=== PATIENT | female | born 1985 | race Caucasian/White ===

== ENCOUNTER 2022-01-23 12:25 | Observation (INO) ==
[2022-01-23] MEDS ORDERED: SODIUM CHLORIDE 0.9% 1000ML 1,000 ML IV ONE (13:32)
[2022-01-23] MEDS ORDERED: ONDANSETRON INJ 2 MG/ML 2 ML VIAL IV STA (13:32)
[2022-01-23] MEDS ORDERED: HYDROmorphone INJ 0.5 MG/0.5 ML SYR IV STA ×2 (13:32→16:51)
[2022-01-23 13:51] LABS: Alanine Aminotransferase 165 U/L (7-52); Albumin Globulin Ratio 1.5 (0.9-2); Albumin Level 4.4 gm/dl (3.4-5.0); Alkaline Phosphatase 84 U/L (34-104); Anion Gap 7 (3-11); Aspartate Aminotransferase 307 U/L (13-39); BUN Creatinine Ratio 14.3 (10-20); Bilirubin,Total 0.9 mg/dl (0.2-1.0); Blood Urea Nitrogen 13 mg/dl (6-23); Calcium 9.5 mg/dl (8.5-10.1); Carbon Dioxide 28 mmol/L (21-32); Chloride 102 mmol/L (98-107); Est GFR (African American) 95.4 ml/min; Est GFR (Non-African American) 82.3 ml/min; Glucose 120 mg/dl (70-99(Fasting)); Lipase 103 U/L (11-82); Potassium 4.2 mmol/L (3.5-5.1); Sodium 137 mmol/L (136-145); Total Protein 7.4 gm/dl (6.0-8.3)
[2022-01-23 14:03] LABS: Basophils # (auto) 0.03 K/uL (0-0.2); Basophils % (auto) 0.3 %; Eosinophils # (auto) 0.02 K/uL (0-0.5); Eosinophils % (auto) 0.2 %; Hemoglobin 14.8 g/dL (12.0-16.0); Immature Granulocytes # (auto) 0.02 K/uL (0.00-0.02); Immature Granulocytes % (auto) 0.2 %; Lymphocytes % (auto) 9.3 %; Mean Corpuscular Hemoglobin 32.1 pg (25-34); Mean Corpuscular Hgb Conc 34.4 g/dL (32-36); Mean Corpuscular Volume 93.3 fL (80-100); Mean Platelet Volume 11.5 fL (7.4-10.4); Monocytes # (auto) 0.78 K/uL (0.11-0.59); Monocytes % (auto) 6.6 %; Neutrophils # (auto) 9.87 K/uL (1.4-6.5); Neutrophils % (auto) 83.4 %; Platelet Count 294 K/uL (130-400); RDW Coefficient of Variation 12.3 % (11.5-14.5); RDW Standard Deviation 41.7 fL (36.4-46.3); Red Blood Count 4.61 M/uL (4.2-5.4); White Blood Count 11.82 K/uL (4.8-10.8)
[2022-01-23] MEDS ORDERED: OPTIRAY 320 100ml IV ONE (14:14)
--- NOTE | 2022-01-23 14:36 | CT Scan Report ---
CT OF THE ABDOMEN AND PELVIS WITH CONTRAST CLINICAL HISTORY: Abdominal pain. Evaluate for perforated ulcer. COMPARISON STUDY: None. TECHNIQUE: Following IV administration of 93 mL of Optiray, axial images of the abdomen and pelvis we re obtained from the lung bases to the proximal femurs. Images were reviewed in the axial, sagittal, and coronal planes. IV contrast was administered without complication. Automated exposure control wa s utilized for the study. A dose lowering technique was utilized adhering to the principles of ALARA . CT DOSE: 379.30 mGy.cm FINDINGS: Lung bases are unremarkable. Bilateral breast implants are partially imaged. No pneumatosis , free air or portal venous gas is present. Liver is unremarkable. The gallbladder is mildly distende d. There is mild gallbladder wall thickening versus pericholecystic fluid. The adrenal glands, kidney s and pancreas are normal. 8 mm hypodense splenic lesion is likely benign. Appendix is normal. There is no evidence for a bowel obstruction. Dominant follicle within the left ovary is noted. Major vascu lature is patent. No acute fracture or suspicious lesion within the visualized skeletal structures is present. There is trace fluid within the pelvis. IMPRESSION: 1. Distended gallbladder with gallbladder wall thickening versus pericholecystic fluid. Right upper q uadrant ultrasound is recommended for further evaluation. 2. No pneumoperitoneum. No bowel wall thickening. No bowel obstruction. 3. Normal appendix. 4. Dominant follicle within the left ovary. Trace fluid within the pelvis. ACT 112: Negative or not required by law. Electronically signed by: Patel Barajas M.D. 01/23/2022 2:34 PM
[2022-01-23 15:23] LABS: Appearance Urine Clear (Clear); Bilirubin Urine Negative (Negative); Blood Urine Negative (Negative); Color Urine Yellow; Glucose Urine UA Negative (Negative); Ketones Urine 1+ (Negative); Leukocyte Esterase Urine Negative (Negative); Nitrite Urine Negative (Negative); Protein Urine Negative (Negative); Specific Gravity Urine > 1.045 (1.000-1.030); Urobilinogen Urine Negative (Negative); pH Urine 7.5 (4.5-7.5)
[2022-01-23 16:12] LABS: Pregnancy Test, Urine Negative (Negative)
--- NOTE | 2022-01-23 16:43 | Ultrasound Report ---
US gallbladder CLINICAL HISTORY: Epigastric pain. COMPARISON STUDY: CT of the abdomen and pelvis performed earlier today. FINDINGS: Liver is sonographically normal. There is no biliary ductal dilatation. Common bile duct me asures 4 mm in caliber. Multiple gallstones within the gallbladder are noted. Gallbladder is mildly d istended. Possible mild gallbladder wall thickening. No sonographic Barone sign was elicited. Pancrea s is unremarkable by sonography. There is no right hydronephrosis. IMPRESSION: 1. Cholelithiasis, gallbladder distention and possible mild gallbladder wall thickening. Acute cholec ystitis cannot be excluded. 2. No biliary ductal dilatation. ACT 112: Negative or not required by law. Electronically signed by: Patel Barajas M.D. 01/23/2022 4:42 PM
--- NOTE | 2022-01-23 17:41 | History & Physical Report ---
Date of Service January 23, 2022 Assessment & Plan (1) Acute cholecystitis due to biliary calculus: Plan: 36-year-old woman with acute cholecystitis. I reviewed the ultrasound and CT scan images personally. I discussed with her and her the risks and benefits of laparoscopic cholecystectomy. We discussed the recovery period and restrictions. All their questions were answered, and they are agreeable to proceed. Consent has been obtained. We will take her to the operating room at the earliest convenience. History of Present Illness Primary Care Provider: NO PCP 36-year-old woman presents with 12-hour history of severe right upper quadrant and epigastric abdominal pain radiating to her back and shoulder. This started at 5 AM this morning. It is accompanied with nausea, vomiting, chills. She denies changes in bowel habits such as constipation, diarrhea, acholic stools. She denies dark urine. She denies chest pain or shortness of breath. White blood cell count slightly elevated, ultrasound and CT scan demonstrate acute cholecystitis. Allergies Allergy/AdvReac Type Severity Reaction Status Date / Time sumatriptan [From Imitrex] Allergy Severe nausea,vomiting,passing Verified 01/23/22 16:09 out Home Medications Medication Instructions Recorded Confirmed Type levothyroxine 150 mcg tablet 150 mcg PO DAILYBB 11/18/21 01/23/22 History pantoprazole 40 mg tablet,delayed 40 mg PO QAM 11/18/21 01/23/22 History release bupropion HCl 300 mg 24 hr tablet, 300 mg PO QAM 01/23/22 01/23/22 History extended release Past Med/Surg History Medical History Hypothyroidism Surgical History No significant past surgical history Social History Smoking Status: Never smoker Preferred Language: Indonesian Feels Safe at Home: Yes Review of Systems 2 Review of Systems: All systems reviewed & are unremarkable except as noted in HPI & below Physical Exam Constitutional: WD/WN, vitals as above Neck: trachea midline, no thyromegaly Respiratory: normal respiratory effort, lungs clear to auscultation Cardiovascular: RRR, no murmur, no edema Gastrointestinal (Abdomen): Inspection/Auscultation: abdomen normal to inspection; abdomen not distended Percussion/Palpation: + abdomen tender (Right upper quadrant) and abdomen soft; no guarding and abdomen not rigid Musculoskeletal: Extremities: no cyanosis and no clubbing Skin: no rashes, warm and dry Psychiatric: A+Ox3, euthymic affect Results & Data Results & Data ([facility]) Vital Signs (Past 12 Hours) Vital Signs Temp Pulse Pulse Resp BP BP Pulse Ox 01/23/22 17:00 85 18 147/95 H 100 01/23/22 15:00 71 16 132/82 100 01/23/22 14:25 71 16 100 01/23/22 13:32 100 01/23/22 12:30 36.8 C 78 20 146/91 H 98 Laboratory Results 01/23/22 01/23/22 01/23/22 Range/Units 17:00 15:15 15:15 WBC (4.8-10.8) K/uL RBC (4.2-5.4) M/uL Hgb (12.0-16.0) g/dL Hct (37-47) % MCV (80-100) fL MCH (25-34) pg MCHC (32-36) g/dL RDW Std Deviation (36.4-46.3) fL RDW Coeff of Garry (11.5-14.5) % Plt Count (130-400) K/uL MPV (7.4-10.4) fL Immature Gran % (Auto) % Neut % (Auto) % Lymph % (Auto) % [place] % (Auto) % Eos % (Auto) % Baso % (Auto) % Neut # (Auto) (1.4-6.5) K/uL Lymph # (Auto) (1.2-3.4) K/uL [place] # (Auto) (0.11-0.59) K/uL Eos # (Auto) (0-0.5) K/uL Baso # (Auto) (0-0.2) K/uL Immature Gran # (Auto) (0.00-0.02) K/uL Sodium (136-145) mmol/L Potassium (3.5-5.1) mmol/L Chloride (98-107) mmol/L Carbon Dioxide (21-32) mmol/L Anion Gap (3-11) BUN (6-23) mg/dl Creatinine (0.6-1.2) mg/dl Est Cr Clr Drug Dosing Est GFR ( Amer) ml/min Est GFR (Non-Af Amer) ml/min BUN/Creatinine Ratio (10-20) Glucose (70-99(Fasting)) mg/dl Calcium (8.5-10.1) mg/dl Total Bilirubin (0.2-1.0) mg/dl AST (13-39) U/L ALT (7-52) U/L Alkaline Phosphatase (34-104) U/L Total Protein (6.0-8.3) gm/dl Albumin (3.4-5.0) gm/dl Globulin (2.5-4.0) gm/dl Albumin/Globulin Ratio (0.9-2) Lipase (11-82) U/L Urine Color Yellow Urine Appearance Clear (Clear) Urine pH 7.5 (4.5-7.5) Ur Specific [place] > 1.045 H (1.000-1.030) Urine Protein Negative (Negative) Urine Glucose (UA) Negative (Negative) Urine Ketones 1+ H (Negative) Urine Blood Negative (Negative) Urine Nitrite Negative (Negative) Urine Bilirubin Negative (Negative) Urine Urobilinogen Negative (Negative) Ur Leukocyte Esterase Negative (Negative) Urine Test Negative (Negative) SARS-CoV-2, RNA, NAAT NEGATIVE (NEGATIVE) 01/23/22 01/23/22 Range/Units 13:00 13:00 WBC 11.82 H (4.8-10.8) K/uL RBC 4.61 (4.2-5.4) M/uL Hgb 14.8 (12.0-16.0) g/dL Hct 43.0 (37-47) % MCV 93.3 (80-100) fL MCH 32.1 (25-34) pg MCHC 34.4 (32-36) g/dL RDW Std Deviation 41.7 (36.4-46.3) fL RDW Coeff of Garry 12.3 (11.5-14.5) % Plt Count 294 (130-400) K/uL MPV 11.5 H (7.4-10.4) fL Immature Gran % (Auto) 0.2 % Neut % (Auto) 83.4 % Lymph % (Auto) 9.3 % [place] % (Auto) 6.6 % Eos % (Auto) 0.2 % Baso % (Auto) 0.3 % Neut # (Auto) 9.87 H (1.4-6.5) K/uL Lymph # (Auto) 1.10 L (1.2-3.4) K/uL [place] # (Auto) 0.78 H (0.11-0.59) K/uL Eos # (Auto) 0.02 (0-0.5) K/uL Baso # (Auto) 0.03 (0-0.2) K/uL Immature Gran # (Auto) 0.02 (0.00-0.02) K/uL Sodium 137 (136-145) mmol/L Potassium 4.2 (3.5-5.1) mmol/L Chloride 102 (98-107) mmol/L Carbon Dioxide 28 (21-32) mmol/L Anion Gap 7 (3-11) BUN 13 (6-23) mg/dl Creatinine 0.91 (0.6-1.2) mg/dl Est Cr Clr Drug Dosing Not Reportable Est GFR ( Amer) 95.4 ml/min Est GFR (Non-Af Amer) 82.3 ml/min BUN/Creatinine Ratio 14.3 (10-20) Glucose 120 H (70-99(Fasting)) mg/dl Calcium 9.5 (8.5-10.1) mg/dl Total Bilirubin 0.9 (0.2-1.0) mg/dl AST 307 H (13-39) U/L ALT 165 H (7-52) U/L Alkaline Phosphatase 84 (34-104) U/L Total Protein 7.4 (6.0-8.3) gm/dl Albumin 4.4 (3.4-5.0) gm/dl Globulin 3.0 (2.5-4.0) gm/dl Albumin/Globulin Ratio 1.5 (0.9-2) Lipase 103 H (11-82) U/L Urine Color Urine Appearance (Clear) Urine pH (4.5-7.5) Ur Specific [place] (1.000-1.030) Urine Protein (Negative) Urine Glucose (UA) (Negative) Urine Ketones (Negative) Urine Blood (Negative) Urine Nitrite (Negative) Urine Bilirubin (Negative) Urine Urobilinogen (Negative) Ur Leukocyte Esterase (Negative) Urine Test (Negative) SARS-CoV-2, RNA, NAAT (NEGATIVE) Diagnostic Findings US gallbladder CLINICAL HISTORY: Epigastric pain. COMPARISON STUDY: CT of the abdomen and pelvis performed earlier today. FINDINGS: Liver is sonographically normal. There is no biliary ductal dilatation. Common bile duct measures 4 mm in caliber. Multiple gallstones within the gallbladder are noted. Gallbladder is mildly distended. Possible mild gallbladder wall thickening. No sonographic Barone sign was elicited. Pancreas is unremarkable by sonography. There is no right hydronephrosis. IMPRESSION: 1. Cholelithiasis, gallbladder distention and possible mild gallbladder wall thickening. Acute cholecystitis cannot be excluded. 2. No biliary ductal dilatation.
--- NOTE | 2022-01-23 17:42 | Emergency Department Note ---
Impression & Plan Acute cholecystitis Patient will go to the OR with Dr. Olmos ED Provider Note NAME: KAREN HERNANDEZ AGE: 36 SEX: F ARRIVES VIA: Walk-In INFORMANT: Patient ED PROVIDER(S): Nancy Galeano DO CHIEF COMPLAINT: Epigastric abdominal pain PLAN: Disposition: Patient will go to the OR with Dr. Olmos Condition: stable MEDICAL DECISION MAKING: This is a 36-year-old female patient who presents to the emergency department with epigastric abdominal pain. The patient has a history of peptic ulcer disease. The patient has elevated transaminases. She received IV analgesia which did seem to help her symptoms and IV antiemetics which helped with the nausea. CT scan of the abdomen/pelvis showed pericholecystic fluid and gallbladder wall thickening. She went for right upper quadrant ultrasound which confirmed evidence of acute cholecystitis. I discussed the case with Dr. Olmos from surgery and he will take the patient to the OR. Triage Nursing notes reviewed and agree with them. Vital Signs: reviewed and remarkable for no significant abnormalities Differential diagnosis: Pancreatitis, peptic ulcer disease perforated bowel, cholecystitis, colitis, hepatitis ER treatment provided: IV Zofran IV normal saline IV Dilaudid x2 Diagnostics interpreted by me: Cardiac Monitoring: Normal sinus rhythm at a rate of 92 Laboratory studies: See below Imaging studies: As per radiology CT scan of the abdomen/pelvis: Please see report Right upper quadrant ultrasound: Please see report HPI: 36/F arrives for evaluation of epigastric abdominal pain that radiates to her chest; vomiting around 5:30 AM this morning, the patient developed abdominal pain that radiated to her chest. Since that time she has had 2 episodes of vom iting. Initially, the pain went through to her back and then up into her chest. She has a history of peptic ulcer disease with a previous EGD and was placed on Protonix. ROS: See above HPI for pertinent positives & negatives. A total of 10 systems reviewed and were otherwise negative. PAST MEDICAL HISTORY: Peptic ulcer disease; thyroid cancer PAST SURGICAL HISTORY: Thyroidectomy FAMILY HISTORY:See Below SOCIAL HISTORY: The patient lives with her and children; she does not smoke; she works as a nurse at the [employer] HOME MEDICATIONS: See list ALLERGIES: See list VITALS:See Below PHYSICAL EXAMINATION: HEENT: Head - normocephalic and atraumatic Pupils are equal, round, and reactive to light. Extraocular eye muscles are intact, and sclera are anic teric. Nose - moist nasal mucosa without discharge. Mouth - moist buccal mucosa. Oropharynx is nonerythematous and there is no tonsillar exudate or edema noted. Neck: Supple; no cervical lymphadenopathy Heart: Regular rate and rhythm. There is a normal S1 and S2 with no murmurs, clicks, or gallops appreciated. Lungs: Clear to auscultation bilaterally with no wheezes, rales, or rhonchi. Abdomen: Soft, moderate tenderness to palpation in the epigastrium. There are no palpable pulsatile masses or hepatosplenomegaly. There is no guarding, rigidity, or rebound noted. Extremities: No evidence of cyanosis, clubbing, or edema. There are easily palpable peripheral pulses. Skin: warm and dry with good turgor and no rashes. ED COURSE: Times/Reassessments: 1320 the patient was evaluated in room A12. A complete history and physical was performed. An IV lock was initiated and labs were drawn as above. An order was placed for continuous cardiac monitoring. The patient was in a normal sinus rhythm at a rate of 92. The patient was medicated with IV Zofran and IV Dilaudid. She went for CT scan of the abdomen/pelvis as described below. I reviewed the results of the laboratory studies and CT with the patient. She has been go for an ultrasound of the gallbladder. Upon return from radiology, the patient was still having significant pain and was given another dose of IV Dilaudid. I discussed the case with Dr. Olmos and he will evaluate the patient for surgery. Nancy Galeano, Past Med/Surg History Medical History Hypothyroidism Surgical History No significant past surgical history Social History Smoking Status: Never smoker Preferred Language: Portuguese Feels Safe at Home: Yes Allergies Allergies Allergy/AdvReac Type Severity Reaction Status Date / Time sumatriptan [From Imitrex] Allergy Severe nausea,vomiting,passing Verified 01/23/22 16:09 out Home Meds Home Medications Medication Instructions Recorded Confirmed levothyroxine 150 mcg tablet 150 mcg PO DAILYBB 11/18/21 01/23/22 pantoprazole 40 mg tablet,delayed 40 mg PO QAM 11/18/21 01/23/22 release bupropion HCl 300 mg 24 hr tablet, 300 mg PO QAM 01/23/22 01/23/22 extended release Results & Data (ED) Vital Signs Vital Signs - 24 hr 01/23/22 12:30 01/23/22 13:32 01/23/22 14:25 Temperature 36.8 C Temperature Source Oral Pulse Rate 78 Pulse Rate [Right Finger] 71 Pulse Rhythm Regular Pulse Strength Normal Respiratory Rate 20 16 Respiratory Effort / Characteristics Non-Labored Spontaneous Non-Labored Respiratory Depth Normal Normal Respiratory Pattern Regular Regular Blood Pressure 146/91 H Blood Pressure [Right Arm] Blood Pressure Mean 109 Blood Pressure Mean [Right Arm] Blood Pressure Position Sitting Blood Pressure Position [Right Arm] Pulse Oximetry 98 100 100 Oxygen Delivery Method Room Air Room Air Room Air Sepsis Recent Fever Within 48 Hours No Sepsis New/Unexplained Change in Mental Status No Sepsis Action Taken by Nursing No Action Required 01/23/22 15:00 01/23/22 17:00 Temperature Temperature Source Pulse Rate Pulse Rate [Right Finger] 71 85 Pulse Rhythm Pulse Strength Respiratory Rate 16 18 Respiratory Effort / Characteristics Non-Labored Non-Labored Respiratory Depth Normal Normal Respiratory Pattern Regular Regular Blood Pressure Blood Pressure [Right Arm] 132/82 147/95 H Blood Pressure Mean Blood Pressure Mean [Right Arm] 98 112 Blood Pressure Position Blood Pressure Position [Right Arm] Sitting Pulse Oximetry 100 100 Oxygen Delivery Method Room Air Room Air Sepsis Recent Fever Within 48 Hours Sepsis New/Unexplained Change in Mental Status Sepsis Action Taken by Nursing Laboratory Data Result diagrams: 01/23/22 13:00 01/23/22 13:00 Lab Results 01/23/22 01/23/22 01/23/22 Range/Units 13:00 13:00 15:15 WBC 11.82 H (4.8-10.8) K/uL RBC 4.61 (4.2-5.4) M/uL Hgb 14.8 (12.0-16.0) g/dL Hct 43.0 (37-47) % MCV 93.3 (80-100) fL MCH 32.1 (25-34) pg MCHC 34.4 (32-36) g/dL RDW Std Deviation 41.7 (36.4-46.3) fL RDW Coeff of Garry 12.3 (11.5-14.5) % Plt Count 294 (130-400) K/uL MPV 11.5 H (7.4-10.4) fL Immature Gran % (Auto) 0.2 % Neut % (Auto) 83.4 % Lymph % (Auto) 9.3 % [place] % (Auto) 6.6 % Eos % (Auto) 0.2 % Baso % (Auto) 0.3 % Neut # (Auto) 9.87 H (1.4-6.5) K/uL Lymph # (Auto) 1.10 L (1.2-3.4) K/uL [place] # (Auto) 0.78 H (0.11-0.59) K/uL Eos # (Auto) 0.02 (0-0.5) K/uL Baso # (Auto) 0.03 (0-0.2) K/uL Immature Gran # (Auto) 0.02 (0.00-0.02) K/uL Sodium 137 (136-145) mmol/L Potassium 4.2 (3.5-5.1) mmol/L Chloride 102 (98-107) mmol/L Carbon Dioxide 28 (21-32) mmol/L Anion Gap 7 (3-11) BUN 13 (6-23) mg/dl Creatinine 0.91 (0.6-1.2) mg/dl Est Cr Clr Drug Dosing Not Reportable Est GFR ( Amer) 95.4 ml/min Est GFR (Non-Af Amer) 82.3 ml/min BUN/Creatinine Ratio 14.3 (10-20) Glucose 120 H (70-99(Fasting)) mg/dl Calcium 9.5 (8.5-10.1) mg/dl Total Bilirubin 0.9 (0.2-1.0) mg/dl AST 307 H (13-39) U/L ALT 165 H (7-52) U/L Alkaline Phosphatase 84 (34-104) U/L Total Protein 7.4 (6.0-8.3) gm/dl Albumin 4.4 (3.4-5.0) gm/dl Globulin 3.0 (2.5-4.0) gm/dl Albumin/Globulin Ratio 1.5 (0.9-2) Lipase 103 H (11-82) U/L Urine Color Yellow Urine Appearance Clear (Clear) Urine pH 7.5 (4.5-7.5) Ur Specific [place] > 1.045 H (1.000-1.030) Urine Protein Negative (Negative) Urine Glucose (UA) Negative (Negative) Urine Ketones 1+ H (Negative) Urine Blood Negative (Negative) Urine Nitrite Negative (Negative) Urine Bilirubin Negative (Negative) Urine Urobilinogen Negative (Negative) Ur Leukocyte Esterase Negative (Negative) Urine Test (Negative) SARS-CoV-2, RNA, NAAT (NEGATIVE) 01/23/22 01/23/22 Range/Units 15:15 17:00 WBC (4.8-10.8) K/uL RBC (4.2-5.4) M/uL Hgb (12.0-16.0) g/dL Hct (37-47) % MCV (80-100) fL MCH (25-34) pg MCHC (32-36) g/dL RDW Std Deviation (36.4-46.3) fL RDW Coeff of Garry (11.5-14.5) % Plt Count (130-400) K/uL MPV (7.4-10.4) fL Immature Gran % (Auto) % Neut % (Auto) % Lymph % (Auto) % [place] % (Auto) % Eos % (Auto) % Baso % (Auto) % Neut # (Auto) (1.4-6.5) K/uL Lymph # (Auto) (1.2-3.4) K/uL [place] # (Auto) (0.11-0.59) K/uL Eos # (Auto) (0-0.5) K/uL Baso # (Auto) (0-0.2) K/uL Immature Gran # (Auto) (0.00-0.02) K/uL Sodium (136-145) mmol/L Potassium (3.5-5.1) mmol/L Chloride (98-107) mmol/L Carbon Dioxide (21-32) mmol/L Anion Gap (3-11) BUN (6-23) mg/dl Creatinine (0.6-1.2) mg/dl Est Cr Clr Drug Dosing Est GFR ( Amer) ml/min Est GFR (Non-Af Amer) ml/min BUN/Creatinine Ratio (10-20) Glucose (70-99(Fasting)) mg/dl Calcium (8.5-10.1) mg/dl Total Bilirubin (0.2-1.0) mg/dl AST (13-39) U/L ALT (7-52) U/L Alkaline Phosphatase (34-104) U/L Total Protein (6.0-8.3) gm/dl Albumin (3.4-5.0) gm/dl Globulin (2.5-4.0) gm/dl Albumin/Globulin Ratio (0.9-2) Lipase (11-82) U/L Urine Color Urine Appearance (Clear) Urine pH (4.5-7.5) Ur Specific [place] (1.000-1.030) Urine Protein (Negative) Urine Glucose (UA) (Negative) Urine Ketones (Negative) Urine Blood (Negative) Urine Nitrite (Negative) Urine Bilirubin (Negative) Urine Urobilinogen (Negative) Ur Leukocyte Esterase (Negative) Urine Test Negative (Negative) SARS-CoV-2, RNA, NAAT NEGATIVE (NEGATIVE) Administered Medications Discontinued Medications Bupivacaine HCl/Epinephrine Bitart (Bupivacaine/Epinephrine 0.25% 1:200,000 30 Ml Vial) Confirm Administered Dose 30 ml .ROUTE .[facility] Stop: 01/23/22 18:20 Last Admin: 01/23/22 19:41 Dose: 30 ml Documented by: [id number] Cefazolin Sodium (Cefazolin 330 Mg/Ml 1 Gm Vial) 2,000 mg IV NOW STA; Protocol Stop: 01/23/22 19:43 Last Admin: 01/23/22 19:20 Dose: 2,000 mg Documented by: [id number] Hydromorphone HCl (Hydromorphone Inj 0.5 Mg/0.5 Ml Syr) 0.5 mg IV NOW STA Stop: 01/23/22 13:33 Last Admin: 01/23/22 13:39 Dose: 0.5 mg Documented by: [id number] Hydromorphone HCl (Hydromorphone Inj 0.5 Mg/0.5 Ml Syr) 0.5 mg IV NOW STA Stop: 01/23/22 16:52 Last Admin: 01/23/22 16:56 Dose: 0.5 mg Documented by: [id number] Sodium Chloride (Nss 1000ml) 1,000 mls @ 999 mls/hr IV .Q1H1M ONE Stop: 01/23/22 14:32 Last Infusion: 01/23/22 15:17 Dose: 0 mls/hr Documented by: [id number] Admin: 01/23/22 13:43 Dose: 999 mls/hr Documented by: [id number] Ioversol (Optiray 320 100ml) 93 ml IV ONCE ONE Stop: 01/23/22 14:15 Last Admin: 01/23/22 14:18 Dose: 93 ml Documented by: [id number] Ondansetron HCl (Ondansetron Inj 2 Mg/Ml 2 Ml Vial) 4 mg IV NOW STA Stop: 01/23/22 13:33 Last Admin: 01/23/22 13:39 Dose: 4 mg Documented by: [id number] Imaging Data Radiologist's Impression: Abdomen/Pelvis CT 01/23/22 13:41 CT OF THE ABDOMEN AND PELVIS WITH CONTRAST CLINICAL HISTORY: Abdominal pain. Evaluate for perforated ulcer. COMPARISON STUDY: None. TECHNIQUE: Following IV administration of 93 mL of Optiray, axial images of the abdomen and pelvis were obtained from the lung bases to the proximal femurs. Images were reviewed in the axial, sagittal, and coronal planes. IV contrast was administered without complication. Automated exposure control was utilized for the study. A dose lowering technique was utilized adhering to the principles of ALARA. CT DOSE: 379.30 mGy.cm FINDINGS: Lung bases are unremarkable. Bilateral breast implants are partially imaged. No pneumatosis, free air or portal venous gas is present. Liver is unremarkable. The gallbladder is mildly distended. There is mild gallbladder wall thickening versus pericholecystic fluid. The adrenal glands, kidneys and pancreas are normal. 8 mm hypodense splenic lesion is likely benign. Appendix is normal. There is no evidence for a bowel obstruction. Dominant follicle within the left ovary is noted. Major vasculature is patent. No acute fracture or suspicious lesion within the visualized skeletal structures is present. There is trace fluid within the pelvis. IMPRESSION: 1. Distended gallbladder with gallbladder wall thickening versus pericholecystic fluid. Right upper quadrant ultrasound is recommended for further evaluation. 2. No pneumoperitoneum. No bowel wall thickening. No bowel obstruction. 3. Normal appendix. 4. Dominant follicle within the left ovary. Trace fluid within the pelvis. ACT 112: Negative or not required by law. Electronically signed by: Patel Barajas M.D. 01/23/2022 2:34 PM Gallbladder Ultrasound 01/23/22 15:46 US gallbladder CLINICAL HISTORY: Epigastric pain. COMPARISON STUDY: CT of the abdomen and pelvis performed earlier today. FINDINGS: Liver is sonographically normal. There is no biliary ductal dilatation. Common bile duct measures 4 mm in caliber. Multiple gallstones within the gallbladder are noted. Gallbladder is mildly distended. Possible mild gallbladder wall thickening. No sonographic Barone sign was elicited. Pancreas is unremarkable by sonography. There is no right hydronephrosis. IMPRESSION: 1. Cholelithiasis, gallbladder distention and possible mild gallbladder wall thickening. Acute cholecystitis cannot be excluded. 2. No biliary ductal dilatation. ACT 112: Negative or not required by law. Electronically signed by: Patel Barajas M.D. 01/23/2022 4:42 PM Discharge Plan Visit Data Chief Complaint: Abdominal Pain Stated Complaint: PAIN IN STOMACH/VOMITING ED Provider: Nancy Galeano Discharge Problem: Acute cholecystitis Patient Disposition: Admitted As Inpatient Discharge Instructions Interventions: ED Discharge Assessment Last Done: 01/23/22 19:15
[2022-01-23] MEDS ORDERED: BUPIVACAINE/EPINEPHRINE 0.25% 1:200,000 30 ML VIAL ONE (18:19)
[2022-01-23] MEDS ORDERED: fentaNYL citrate 100 MCG/2 ML VIAL ONE (18:59)
[2022-01-23] MEDS ORDERED: MIDAZOLAM HCL 1 MG/ML 2ML VIAL ONE (18:59)
[2022-01-23] MEDS ORDERED: HYDROmorphone INJ 1 MG/ML SYRINGE IV PRN (19:02)
[2022-01-23] MEDS ORDERED: ATROPINE SULFATE 0.1 MG/ML 10ML SYR IV PRN (19:02)
[2022-01-23] MEDS ORDERED: ONDANSETRON INJ 2 MG/ML 2 ML VIAL IV PRN ×2 (19:02→21:58)
[2022-01-23] MEDS ORDERED: ePHEDrine sulfate 50 MG/ML AMP IV PRN (19:02)
[2022-01-23] MEDS ORDERED: PROMETHAZINE HCL 6.25 MG in SODIUM CHLORIDE 0.9% 50 ML IV PRN (19:02)
[2022-01-23] MEDS ORDERED: fentaNYL citrate 100 MCG/2 ML VIAL IV PRN (19:02)
--- NOTE | 2022-01-23 19:03 | Anesthesiology Consultation ---
Date of Service January 23, 2022 Assessment & Plan (1) Encounter for pre-operative examination: Chart Review Chart Review: Acceptable Risk for Surgery and Patient NOT seen in Pre Admission Testing Consults Requested none History Surgery Operation Date: 01/23/22 18:45 Proposed Procedures p Laparoscopic Cholecystectomy - Kvng Olmos MD Height/Weight Height: 5 ft 4 in Weight: 79 kg Allergies Allergy/AdvReac Type Severity Reaction Status Date / Time sumatriptan [From Imitrex] Allergy Severe nausea,vomiting,passing Verified 01/23/22 16:09 out Medications Home Medications Medication Instructions Recorded Confirmed Last Taken levothyroxine 150 mcg tablet 150 mcg PO DAILYBB 11/18/21 01/23/22 11/17/21 pantoprazole 40 mg tablet,delayed 40 mg PO QAM 11/18/21 01/23/22 11/17/21 release bupropion HCl 300 mg 24 hr tablet, 300 mg PO QAM 01/23/22 01/23/22 Unknown extended release NPO Date Last Intake of Fluids: 01/23/22 Time Last Intake of Fluids: 07:30 Date Last Intake of Solids: 01/23/22 Time Last Intake of Solids: 01:30 Past Medical History Medical History Hypothyroidism Exercise / Class Metabolic Activity II 4-5 Yardwork/Stairs/Walk up hill Past Surgical History Surgical History No significant past surgical history Past Anesthesia History No Hx of Anesthesia Complications and No Family Hx of Anesthesia Complications History of PONV No Hx of PONV and No Hx of Motion Sickness Social History Smoking Status: Never smoker Physical Exam Vital Signs Last Vital Signs Temp 36.8 C 01/23/22 12:30 Pulse 85 01/23/22 17:00 Resp 18 01/23/22 17:00 BP 147/95 H 01/23/22 17:00 Pulse Ox 100 01/23/22 17:00 Testing Laboratory Results 01/23/22 13:00 01/23/22 13:00 Urine Color Yellow 01/23/22 15:15 Urine Appearance Clear (Clear) 01/23/22 15:15 Urine pH 7.5 (4.5-7.5) 01/23/22 15:15 Ur Specific Harbert > 1.045 (1.000-1.030) H 01/23/22 15:15 Urine Protein Negative (Negative) 01/23/22 15:15 Urine Glucose (UA) Negative (Negative) 01/23/22 15:15 Urine Ketones 1+ (Negative) H 01/23/22 15:15 Urine Nitrite Negative (Negative) 01/23/22 15:15 Ur Leukocyte Esterase Negative (Negative) 01/23/22 15:15 Urine Test Negative (Negative) 01/23/22 15:15 01/23/22 15:15 Urine Test Negative
[2022-01-23] MEDS ORDERED: ceFAZolin 330 MG/ML 1 GM VIAL ONE (19:25)
[2022-01-23] MEDS ORDERED: NEOSTIGMINE METHYLSULFATE 1 MG/ML 10ML VIAL ONE (19:26)
[2022-01-23] MEDS ORDERED: ONDANSETRON INJ 2 MG/ML 2 ML VIAL ONE (19:26)
[2022-01-23] MEDS ORDERED: ROCURONIUM BROMIDE 10 MG/ML 5 ML VIAL IV ONE (19:26)
[2022-01-23] MEDS ORDERED: DEXAMETHASONE SOD INJ 4 MG/ML VIAL ONE (19:26)
[2022-01-23] MEDS ORDERED: SUCCINYLCHOLINE 100MG/5ML SYR IV ONE (19:26)
[2022-01-23] MEDS ORDERED: PROPOFOL IV EMULSION 10 MG/ML 20 ML VIAL IV ONE (19:26)
[2022-01-23] MEDS ORDERED: GLYCOPYRROLATE 0.2 MG/ML VIAL ONE (19:26)
[2022-01-23] MEDS ORDERED: diphenhydrAMINE 50 MG/ML VIAL ONE (19:27)
[2022-01-23] MEDS ORDERED: ceFAZolin 330 MG/ML 1 GM VIAL IV STA (19:42)
--- NOTE | 2022-01-23 20:07 | Operative Report ---
Post Operative Report Pre & Post Diagnosis Operation Date: 01/23/22 18:45 Pre-Op Diagnosis: Acute cholecystitis due to biliary calculus Post-Op Diagnosis: Acute cholecystitis due to biliary calculus I identified the patient and participated in the time-out.: Yes Procedure Operation Date: 01/23/22 18:45 Actual Procedures p Laparoscopic Cholecystectomy - Kvng Olmos MD Surgeon Kvng Olmos MD Slide Maker None Estimated Blood Loss 5 Findings Consistent with Post-Op Diagnosis Acute cholecystitis Specimens Gallbladder Anesthesia Type General Complications No immediate complications Description of Procedure The patient was taken to the operating room, and placed supine on the operating table. A timeout was performed, perioperative antibiotics were administered, SCD boots were placed. After adequate anesthesia and analgesia was obtained, the abdomen was prepped and draped in the normal sterile fashion. Local anesthetic was injected into and around the proposed incision sites. An incision was made with a 15 blade scalpel in the supraumbilical region and carried down to the level of the fascia. The fascia was grasped with a trach hook, and a varies needle was used to enter the abdominal cavity. The abdomen was insufflated to a pressure of 15 mmHg, and a 11 mm trocar was placed in this location. A 10 mm, 30 degree laparoscope was placed into the abdominal cavity, and the abdomen was surveyed. Two 5 mm trochars were placed along the right costal margin, and one 5 mm trocar was placed in the subxiphoid region under direct visualization. The gallbladder was grasped and retracted cephalad and laterally, exposing the triangle of Calot. Dissection began in the triangle with a combination of blunt dissection with the [place] dissector, and judicious use of the hook cautery. The cystic duct and cystic artery were dissected free circumferentially, and a critical view of safety was obtained. The cystic duct and cystic artery were clipped and transected, and the gallbladder was removed from the gallbladder fossa with the hook cautery. The camera was switched to a 5 mm, the gallbladder was placed in an Endo Catch bag, and removed via the supraumbilical port site. The camera was switched back to the 10 mm camera, and the abdomen was surveyed again. Hemostasis was checked and attended, and was excellent. The abdomen was copiously irrigated and suctioned free. Again hemostasis was checked and was excellent. All trochars were removed under direct visualization. The abdomen was desufflated. The fascia in the 11 mm port site was closed with a 0 Vicryl suture. The skin was closed with a running 4-0 Monocryl subcuticular stitch. Dermabond was applied. The patient tolerated the procedure without complication, and was transferred in stable condition to the PACU. All instrument, needle, and sponge counts were correct at the end of the case. I attest to the content of the Intraoperative Record and any orders documented therein. Any exceptions are noted below.
--- NOTE | 2022-01-23 20:25 | Anesthesiology Progress Note ---
Date of Service January 23, 2022 Anesthesia Post Procedure Vital Signs Vital Signs: Temp Pulse Pulse Resp BP BP Pulse Ox 01/23/22 17:00 85 18 147/95 H 100 01/23/22 15:00 71 16 132/82 100 01/23/22 14:25 71 16 100 01/23/22 13:32 100 01/23/22 12:30 36.8 C 78 20 146/91 H 98 Transfer of Care Handoff Completed per policy Notes Mental Status: alert / awake / arousable and participated in evaluation Patient Amnestic to Procedure: Yes Nausea / Vomiting: adequately controlled Pain: adequately controlled Airway Patency, RR, SpO2: stable & adequate BP & HR: stable & adequate Hydration State: stable & adequate Anesthetic Complications: no major complications apparent and Pt Satisfied with anesthetic care
[2022-01-23] MEDS ORDERED: KETOROLAC 30 MG/ML VIAL IV PRN (21:58)
[2022-01-23] MEDS ORDERED: diphenhydrAMINE Capsule 25 MG CAP PO PRN (21:58)
[2022-01-23] MEDS ORDERED: oxyCODONE/ACETAMINOPHEN 5mg/325mg TAB PO PRN (21:58)
[2022-01-23] MEDS ORDERED: MoRPHine SULFATE 2 MG/ML CARP IV PRN (21:58)
[2022-01-23] MEDS ORDERED: PROMETHAZINE HCL 12.5 MG in SODIUM CHLORIDE 0.9% 50 ML IV PRN (21:58)
[2022-01-24] MEDS ORDERED: ENOXAPARIN INJ 40 MG/0.4 ML SYR SQ SCH (07:00)
--- NOTE | 2022-01-24 08:43 | Surgery Progress Note ---
Date of Service January 24, 2022 Assessment & Plan (1) Acute cholecystitis due to biliary calculus: Plan: Doing well postop day 1 status post laparoscopic cholecystectomy. Tolerating diet. No nausea or vomiting. We will discharge her to home. She will return to clinic in 2 weeks for follow-up. She will call with any new or concerning symptoms in the meantime. Instructions were given. Admission and Anticipated Discharge Date Admission Date: January 23, 2022 Subjective Postop day 1 status post lap yi. Doing well. Denies nausea or vomiting. Tolerating diet. No fevers. Physical Exam Constitutional: WD/WN, vitals as above Neck: trachea midline, no thyromegaly Gastrointestinal (Abdomen): Inspection/Auscultation: + abdominal surgical incision (Clean dry intact with Dermabond) Percussion/Palpation: + abdomen tender (Mild incisional tenderness) and abdomen soft; no guarding and abdomen not rigid Skin: no rashes, warm and dry Psychiatric: A+Ox3, euthymic affect Results & Data ([facility]) Vital Signs (Past 12 Hours) Vital Signs Temp Pulse Pulse Resp BP BP Pulse Ox 01/24/22 07:40 37.1 C 83 18 116/71 97 01/24/22 04:22 37.1 C 98 H 16 101/59 L 97 01/24/22 00:09 37 C 95 H 16 121/77 96 01/23/22 23:13 37.1 C 85 16 124/85 96 01/23/22 22:40 36.7 C 69 14 129/85 95 01/23/22 22:10 37.0 C 78 14 119/75 95 01/23/22 21:40 36.9 C 68 14 119/78 96 01/23/22 20:45 36.7 C 74 17 125/93 97
== END 2022-01-24 10:42 | disposition home or self-care (01) ==
LOC: ED 12:25 → OR 18:33 → 3W 18:33